=== PATIENT | male | born 1960 | race African-American/Black ===

== ENCOUNTER 2020-04-19 22:22 | Emergency (ER) | payer OTHER, MEDICAID ==
[~2020-04-19] VITALS: Ht 170.2 cm; Wt 74.8 kg
[2020-04-19 22:32] VITALS: BP_SYST 178
[2020-04-20 00:53] LABS: BASOPHILS % (AUTO) 0.5 % (0.0-2.0); EOSINOPHILS # (AUTO) 0.3 K/uL (0.0-0.4); EOSINOPHILS % (AUTO) 3.6 % (0.0-4.0); HEMATOCRIT 40.7 % (36-54); HEMOGLOBIN 13.3 g/dL (14.0-18.0); LYMPHOCYTES # (AUTO) 2.2 K/uL (1.0-5.5); LYMPHOCYTES % (AUTO) 27.8 % (20.5-51.5); MEAN CORPUSCULAR HEMOGLOBIN 28 pg (27-31); MEAN CORPUSCULAR HGB CONC 33 % (32-36); MEAN CORPUSCULAR VOLUME 85 fL (79.0-98.0); MONOCYTES # (AUTO) 0.8 K/uL (0.0-1.0); MONOCYTES % (AUTO) 10.2 % (1.7-9.3); NEUTROPHILS # (AUTO) 4.6 K/uL (1.8-7.7); NEUTROPHILS % (AUTO) 57.9 % (40.0-70.0); PLATELET COUNT (AUTO) 323 K/uL (130-430); RED BLOOD CELL COUNT(AUTO) 4.79 MIL/uL (4.2-6.2); RED CELL DISTRIBUTION WIDTH 13.9 % (9.0-15.0)
[2020-04-20 01:09] LABS: CALCIUM 8.7 mg/dL (8.4-11.0); POTASSIUM 4.3 mmol/L (3.5-5.1)
[2020-04-20 01:15] LABS: ALBUMIN 3.7 g/dL (3.4-4.8); TOTAL BILIRUBIN 0.3 mg/dL (0.0-1.0)
--- NOTE | 2020-04-20 01:29 | NUR ---
Patient to ER H1 to gown for evaluation. Side rails up.
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
--- NOTE | 2020-04-20 01:40 | NUR ---
ER at bedside examining patient.
--- NOTE | 2020-04-20 02:03 | NUR ---
PT. URIN ECOLLECTED VIA LEG BAG FROM PT. INDWELLING PUBIC CATHEDER 1000ML DRAINED AND DIPPED IN ER RESULTS GIVEN TO MD SWENSON SAMPLE SENT TO LAB AWAITING FURTHER RESULTS
[2020-04-20] MEDS ORDERED: NITROFURANTOIN MONOHYD/M-CRYST 100 MG CAPSULE PO ONE ×2 (02:15→02:18)
[2020-04-20 02:20] LABS: BILIRUBIN,URINE NEGATIVE (NEGATIVE); CLARITY/URINE CLEAR (CLEAR); COLOR,URINE YELLOW (YELLOW); GLUCOSE,URINE NEGATIVE (NEGATIVE); KETONES,URINE NEGATIVE (NEGATIVE); LEUKOCYTE ESTERASE ,URINE 2+ (NEGATIVE); NITRITE, URINE NEGATIVE (NEGATIVE); PROTEIN URINE 2+ (NEGATIVE); UROBILINOGEN,URINE 0.2 (0.2-1.0)
[2020-04-20 02:22] LABS: BLOOD, URINE TRACE (NEGATIVE)
[2020-04-20 02:24] LABS: WBC,URINE 20-50 /HPF (0-3)
[2020-04-20 02:25] LABS: BACTERIA,URINE MANY /HPF (None Seen); TRIPLE PHOSPHATE CRYSTAL,UR 0-10 /HPF (None Seen)
--- NOTE | 2020-04-20 02:51 | NUR ---
PT AWAITING CT SCAN AND IS RESTING QUIETLY IN NO DISTRESS
--- NOTE | 2020-04-20 03:00 | NUR ---
BEDSIDE REPORT GIVEN TO OIL FURNACE INSTALLERMICAELA CRAWFORD WHO WILL ASSUME CARE
--- NOTE | 2020-04-20 03:20 | NUR ---
Pt taken to CT via luisana dewitt by Indy
--- NOTE | 2020-04-20 03:37 | NUR ---
Pt back from via luisana
--- NOTE | 2020-04-20 04:10 | NUR ---
Patient resting comfortably in bed. No acute distress, will continue to monitor.
--- NOTE | 2020-04-20 06:30 | NUR ---
Discharge paperwork ready for patient. Patient reported that he wants to see a social science professor in the morning because he wants to be placed at a longterm facility. Pt was given resources for homeless shelters but still reports he wants to see a social science professor. ER MD and charge nurse made aware.
--- NOTE | 2020-04-20 07:00 | NUR ---
Assumed care of patient, report received from MICAELA Claros. Pt currently resting in bed, will continue to monitor.
--- NOTE | 2020-04-20 07:30 | NUR ---
Patient given written and verbal discharge instructions and verbalizes understanding. ER MD discussed with patient the results and treatment provided. Patient in stable condition. ID arm band removed. Rx of Macrobid given. Patient educated on pain management and to follow up with PMD. Pain Scale 0. Opportunity for questions provided and answered. Medication side effect fact sheet provided. Refuses offer of skilled nursing placement. Given list of available shelters in surrounding areas. Provided with clean pants, dressed in appropriate clothing for weather. Pt requests to speak with social security specialist. Currently waitng in waiting room, nephrology social worker notified.
[2020-04-20 08:22] VITALS: BP_SYST 127
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
== END 2020-04-20 07:30 | disposition home or self-care (01) ==
LOC: SED 22:22
DX: S00.83XA Contusion of other part of head, initial encounter (principal); N39.0 Urinary tract infection, site not specified; F17.210 Nicotine dependence, cigarettes, uncomplicated; W22.8XXA Striking against or struck by other objects, initial encounter; Y93.89 Activity, other specified; Y92.89 Other specified places as the place of occurrence of the external cause; Y99.8 Other external cause status
CPT/HCPCS: 36415; 70450-TC; 70480; 76376; 80053; 81000-TC; 85025; 87086; 99285

== ENCOUNTER 2020-11-01 18:00 | Emergency (ER) | payer OTHER, MEDICAID ==
[~2020-11-01] VITALS: Ht 177.8 cm; Wt 90.7 kg
[2020-11-01 18:00] VITALS: BP_SYST 128
[2020-11-01] MEDS ORDERED: HYDROcodone/ACETAMIN 10-325 MG TAB PO ONE (18:15)
[2020-11-01] MEDS ORDERED: IBUPROFEN 800 MG TABLET PO ONE (18:15)
[2020-11-01 18:55] LABS: BASOPHILS % (AUTO) 0.5 % (0.0-2.0); EOSINOPHILS # (AUTO) 0.1 K/uL (0.0-0.4); EOSINOPHILS % (AUTO) 1.9 % (0.0-4.0); HEMATOCRIT 39.7 % (36-54); HEMOGLOBIN 12.7 g/dL (14.0-18.0); LYMPHOCYTES # (AUTO) 2.4 K/uL (1.0-5.5); MEAN CORPUSCULAR HEMOGLOBIN 28 pg (27-31); MEAN CORPUSCULAR HGB CONC 32 % (32-36); MEAN CORPUSCULAR VOLUME 87 fL (79.0-98.0); MONOCYTES # (AUTO) 0.3 K/uL (0.0-1.0); MONOCYTES % (AUTO) 4.2 % (1.7-9.3); NEUTROPHILS # (AUTO) 4.8 K/uL (1.8-7.7); NEUTROPHILS % (AUTO) 62.4 % (40.0-70.0); PLATELET COUNT (AUTO) 329 K/uL (130-430); RED BLOOD CELL COUNT(AUTO) 4.57 MIL/uL (4.2-6.2); RED CELL DISTRIBUTION WIDTH 14.5 % (9.0-15.0); WHITE BLOOD COUNT (AUTO) 7.7 K/uL (4.8-10.8)
[2020-11-01 19:12] LABS: C-REACTIVE PROTEIN QUANT 1.2 mg/dL (0-0.5)
[2020-11-01 19:36] LABS: ANION GAP 12 (5-15); ASPARTATE AMINOTRANSFERASE 24 U/L (10-37); CALCIUM 8.6 mg/dL (8.4-11.0); CHLORIDE 104 mmol/L (98-107); CREATININE 1.04 mg/dL (0.55-1.30); GFR AFRICAN AMERICAN 94 mL/min (>90); GLUCOSE 98 mg/dL (70-99); POTASSIUM 3.1 mmol/L (3.5-5.1); SODIUM SERUM 140 mmol/L (136-145); TOTAL BILIRUBIN 0.2 mg/dL (0.0-1.0); UREA NITROGEN, BLOOD 17 mg/dL (8-21)
[2020-11-01 19:37] LABS: ALANINE AMINOTRANSFERASE 34 U/L (12-78); ALBUMIN 3.5 g/dL (3.4-4.8); ALCOHOL, BLOOD 200 mg/dL (<10); URIC ACID 7.7 mg/dL (2.4-7.0)
[2020-11-01 19:42] LABS: ACETONE, SERUM NEGATIVE (NEGATIVE)
[2020-11-01] MEDS ORDERED: HYDR-3917 PO (19:57)
[2020-11-01] MEDS ORDERED: IBUP-1971 PO (19:57)
[2020-11-01 20:24] LABS: ERYTHROCYTE SEDIMENTATION RATE 2 MM/HR (0-15)
[2020-11-01 20:31] VITALS: BP_SYST 121
== END 2020-11-01 20:31 | disposition home or self-care (01) ==
LOC: SED 18:00
DX: M19.022 Primary osteoarthritis, left elbow (principal); M25.522 Pain in left elbow; F10.10 Alcohol abuse, uncomplicated; Z79.899 Other long term (current) drug therapy; Y90.7 Blood alcohol level of 200-239 mg/100 ml
CPT/HCPCS: 36415; 73080; 80053; 82009; 82140; 83605; 84550; 85025; 85651; 86140; 99284; G0482

== ENCOUNTER 2020-11-04 12:53 | Emergency (ER) | payer OTHER, MEDICAID ==
[~2020-11-04] VITALS: Ht 177.8 cm; Wt 106.6 kg
[~2020-11-04 12:53] MED LIST: HYDR-3917 PO; IBUP-1971 PO
[2020-11-04 13:10] VITALS: BP_SYST 122
[2020-11-04 14:13] LABS: BASOPHILS % (AUTO) 0.6 % (0.0-2.0); EOSINOPHILS % (AUTO) 0.6 % (0.0-4.0); HEMATOCRIT 38.3 % (36-54); HEMOGLOBIN 12.6 g/dL (14.0-18.0); LYMPHOCYTES # (AUTO) 1.7 K/uL (1.0-5.5); LYMPHOCYTES % (AUTO) 30.5 % (20.5-51.5); MEAN CORPUSCULAR HEMOGLOBIN 28 pg (27-31); MEAN CORPUSCULAR HGB CONC 33 % (32-36); MEAN CORPUSCULAR VOLUME 85 fL (79.0-98.0); MONOCYTES # (AUTO) 0.2 K/uL (0.0-1.0); MONOCYTES % (AUTO) 3.8 % (1.7-9.3); NEUTROPHILS # (AUTO) 3.7 K/uL (1.8-7.7); NEUTROPHILS % (AUTO) 64.5 % (40.0-70.0); PLATELET COUNT (AUTO) 294 K/uL (130-430); RED BLOOD CELL COUNT(AUTO) 4.52 MIL/uL (4.2-6.2); RED CELL DISTRIBUTION WIDTH 14.5 % (9.0-15.0); WHITE BLOOD COUNT (AUTO) 5.7 K/uL (4.8-10.8)
[2020-11-04 14:24] LABS: ANION GAP 10 (5-15); CALCIUM 8.5 mg/dL (8.4-11.0); CHLORIDE 108 mmol/L (98-107); CREATININE 0.87 mg/dL (0.55-1.30); GLUCOSE 115 mg/dL (70-99); POTASSIUM 3.5 mmol/L (3.5-5.1); SODIUM SERUM 143 mmol/L (136-145); UREA NITROGEN, BLOOD 16 mg/dL (8-21)
[2020-11-04 14:27] LABS: GFR AFRICAN AMERICAN 116 mL/min (>90)
[2020-11-04 14:32] LABS: ALANINE AMINOTRANSFERASE 28 U/L (12-78); ALBUMIN 3.5 g/dL (3.4-4.8); ALCOHOL, BLOOD 224 mg/dL (<10); ASPARTATE AMINOTRANSFERASE 25 U/L (10-37); TOTAL BILIRUBIN 0.2 mg/dL (0.0-1.0)
[2020-11-04 21:29] VITALS: BP_SYST 105
== END 2020-11-04 21:30 | disposition home or self-care (01) ==
LOC: SED 12:53
DX: S50.12XA Contusion of left forearm, initial encounter (principal); F10.129 Alcohol abuse with intoxication, unspecified; Z79.899 Other long term (current) drug therapy; Y90.7 Blood alcohol level of 200-239 mg/100 ml; W05.0XXA Fall from non-moving wheelchair, initial encounter; Y93.89 Activity, other specified; Y92.89 Other specified places as the place of occurrence of the external cause; Y99.8 Other external cause status
CPT/HCPCS: 36415; 71045; 73030; 73060; 73070; 73090; 73521; 80053; 84484; 85025; 93005; 99285; G0482